=== PATIENT | male | born 1950 | race Asian ===

== ENCOUNTER 2023-10-14 19:27 | Inpatient (IN) | payer MEDICARE, OTHER ==
[~2023-10-14] VITALS: Ht 172.7 cm; Wt 72.6 kg
[2023-10-14] MEDS ORDERED: OLANZAPINE 10 MG VIAL IM ONE (20:11)
[2023-10-14] MEDS: OLANZAPINE 10 MG VIAL IM ONE (20:23)
[2023-10-14 20:32] LABS: BASOPHILS # (AUTO) 0.1 K/uL (0.0-0.2); BASOPHILS % (AUTO) 0.9 % (0.0-2.0); EOSINOPHILS # (AUTO) 0.2 K/uL (0.0-0.7); HEMATOCRIT 43 % (39-51); HEMOGLOBIN 14.4 g/dL (13.5-17.5); LYMPHOCYTES # (AUTO) 1.4 K/uL (0.8-4.8); LYMPHOCYTES % (AUTO) 12.1 % (20.0-44.0); MEAN CORPUSCULAR HEMOGLOBIN 29 PG (26.0-33.0); MEAN CORPUSCULAR HGB CONC 33 g/dl (31.0-36.0); MEAN CORPUSCULAR VOLUME 88 fL (80-96); MONOCYTES % (AUTO) 8.8 % (2.0-12.0); NEUTROPHILS # (AUTO) 8.9 K/uL (1.8-8.9); NEUTROPHILS % (AUTO) 76.2 % (43.0-81.0); PLATELET COUNT (AUTO) 427 K/uL (150-450); RED BLOOD CELL COUNT(AUTO) 4.89 MIL/uL (4.5-6.0); RED CELL DISTRIBUTION WIDTH 14.2 % (11.5-15.0); WHITE BLOOD COUNT (AUTO) 11.7 K/uL (4.3-11.0)
[2023-10-14 20:47] LABS: ALANINE AMINOTRANSFERASE 16 U/L (12-78); ALBUMIN 3.8 g/dL (3.4-5.0); ALKALINE PHOSPHATASE 80 U/L (46-116); ASPARTATE AMINOTRANSFERASE < 5 U/L (15-37); BILIRUBIN,DIRECT 0.1 mg/dL (0.0-0.2); BILIRUBIN,TOTAL 0.2 mg/dL (0.2-1.0); CHLORIDE 92 mmol/L (98-107); CREATININE 0.8 mg/dL (0.6-1.3); GLUCOSE 185 mg/dL (74-106); INR 0.97 (0.91-1.10); PARTIAL THROMBOPLASTIN TIME 30.5 SEC (24.3-34.3); POTASSIUM 4.4 mmol/L (3.5-5.1); PROTHROMBIN TIME 10.3 SECS (9.2-11.1); SODIUM SERUM 130 mmol/L (136-145); TOTAL PROTEIN, SERUM 8.7 g/dL (6.4-8.2); UREA NITROGEN, BLOOD 17 mg/dL (7-18)
[2023-10-14 20:59] LABS: NT-PRO BNP 89 pg/mL (0-125)
[2023-10-14 21:01] LABS: SALICYLATE 2.1 mg/dL (2.8-20.0)
[2023-10-14 21:03] LABS: ACETAMINOPHEN <10 ug/ml (10-30)
[2023-10-14 21:04] VITALS: O2SAT 97
[2023-10-14 21:09] LABS: CARBON DIOXIDE 24 mmol/L (21-32)
[2023-10-14 21:28] LABS: ALCOHOL, BLOOD < 3 mg/dL (0-10); CALCIUM, SERUM 10.2 mg/dL (8.5-10.1)
[2023-10-14] MEDS ORDERED: LORAZEPAM INJ 2 MG/ML VIAL ONE (21:28)
[2023-10-14] MEDS ORDERED: Calcium Gluconate 1GM/10ML 9.3 MEQ in IV NS 0.9% 100 ML IV ONE (21:30)
[2023-10-14] MEDS ORDERED: Calcium Gluconate 0.465 MEQ/ML VIAL IV ONE (21:31)
[2023-10-14] MEDS: LORAZEPAM INJ 2 MG/ML VIAL IV ONE (21:40)
[2023-10-14] MEDS: IV NS 0.9% 1,000 ML IV ONE (21:40)
[2023-10-14 22:11] LABS: APPEARANCE,URINE SLIGHTLY CLOUDY (CLEAR); BILIRUBIN,URINE NEGATIVE (NEGATIVE); BLOOD, URINE TRACE-INTA Ery/uL (NEGATIVE); COLOR,URINE YELLOW (YELLOW); KETONES,URINE NEGATIVE (NEGATIVE); LEUKOCYTE ESTERASE ,URINE 1+ (NEGATIVE); NITRITE, URINE NEGATIVE (NEGATIVE); PH,URINE 6.5 (5.0-8.0); PROTEIN,URINE TRACE mg/dl (NEGATIVE); UGLUCOSE 3+ mg/dL (NEGATIVE); UROBILINOGEN,URINE 0.2 EU/dL (0.2)
[2023-10-14 22:18] LABS: ADD URINE CULTURE YES; BACTERIA,URINE 1+ /HPF (None Seen); MUCUS,URINE Few /LPF (None Seen); SQUAMOUS EPITHELIAL CELL,UR 0-2 /HPF (None Seen)
[2023-10-14] MEDS ORDERED: ZOLPIDEM TARTRATE 5 MG TABLET PO PRN (22:30)
[2023-10-14] MEDS ORDERED: MAG HYDROX/AL HYDROX/SIMETH 30 ML UDC PO PRN (22:30)
[2023-10-14] MEDS ORDERED: MAGNESIUM HYDROXIDE 30 ML UDC PO PRN (22:30)
[2023-10-14] MEDS ORDERED: ONDANSETRON HCL/PF 4 MG/2 ML VIAL IVP PRN (22:30)
[2023-10-14 22:31] LABS: AMPHETAMINE, URINE NEGATIVE (NEGATIVE); BARBITURATE, URINE NEGATIVE (NEGATIVE); BENZODIAZEPINE, URINE NEGATIVE (NEGATIVE); CANNABINOID, URINE NEGATIVE (NEGATIVE); COCCAINE, URINE NEGATIVE (NEGATIVE); OPIATE, URINE NEGATIVE (NEGATIVE); PHENCYCLIDINE SCREEN,URINE NEGATIVE (NEGATIVE)
[2023-10-14 23:30] VITALS: BP 140/80; TEMP 97.5; O2SAT 97
[2023-10-15] MEDS: IV NS 0.9% 1,000 ML IV PRN (00:21)
[2023-10-15] MEDS: PANTOPRAZOLE 40 MG TABLET.DR PO SCH (07:58)
[2023-10-15 07:59] LABS: ALANINE AMINOTRANSFERASE 18 U/L (12-78); ALBUMIN 3.4 g/dL (3.4-5.0); ALKALINE PHOSPHATASE 75 U/L (46-116); ASPARTATE AMINOTRANSFERASE 10 U/L (15-37); BILIRUBIN,DIRECT 0.1 mg/dL (0.0-0.2); BILIRUBIN,TOTAL 0.2 mg/dL (0.2-1.0); CALCIUM, SERUM 9.6 mg/dL (8.5-10.1); CARBON DIOXIDE 25 mmol/L (21-32); CHLORIDE 95 mmol/L (98-107); CREATININE 0.7 mg/dL (0.6-1.3); GLUCOSE 110 mg/dL (74-106); MAGNESIUM 1.9 mg/dL (1.8-2.4); PHOSPHORUS 3.4 mg/dL (2.5-4.9); POTASSIUM 4.2 mmol/L (3.5-5.1); SODIUM SERUM 130 mmol/L (136-145); TOTAL PROTEIN, SERUM 7.9 g/dL (6.4-8.2); UREA NITROGEN, BLOOD 16 mg/dL (7-18)
[2023-10-15 08:00] VITALS: BP 201/81; TEMP 98.6; O2SAT 99
[2023-10-15 08:31] LABS: BASOPHILS # (AUTO) 0.1 K/uL (0.0-0.2); BASOPHILS % (AUTO) 0.9 % (0.0-2.0); EOSINOPHILS # (AUTO) 0.3 K/uL (0.0-0.7); EOSINOPHILS % (AUTO) 3.3 % (0.0-6.0); HEMATOCRIT 40 % (39-51); HEMOGLOBIN 13.2 g/dL (13.5-17.5); LYMPHOCYTES # (AUTO) 1.1 K/uL (0.8-4.8); LYMPHOCYTES % (AUTO) 12.9 % (20.0-44.0); MEAN CORPUSCULAR HEMOGLOBIN 29 PG (26.0-33.0); MEAN CORPUSCULAR HGB CONC 33 g/dl (31.0-36.0); MEAN CORPUSCULAR VOLUME 89 fL (80-96); MONOCYTES # (AUTO) 0.9 K/uL (0.1-1.30); MONOCYTES % (AUTO) 10.4 % (2.0-12.0); NEUTROPHILS % (AUTO) 72.5 % (43.0-81.0); PLATELET COUNT (AUTO) 413 K/uL (150-450); RED BLOOD CELL COUNT(AUTO) 4.51 MIL/uL (4.5-6.0); RED CELL DISTRIBUTION WIDTH 14.3 % (11.5-15.0); WHITE BLOOD COUNT (AUTO) 8.2 K/uL (4.3-11.0)
[2023-10-15] MEDS ORDERED: OLAN5TAB3 PO (09:36)
[2023-10-15] MEDS ORDERED: CYAN-51 PO (09:36)
[2023-10-15] MEDS ORDERED: BISA10SU11 RC (09:36)
[2023-10-15] MEDS ORDERED: ASCO500T10 PO (09:36)
[2023-10-15] MEDS ORDERED: LOSA100T31 PO (09:36)
[2023-10-15] MEDS ORDERED: FERR325T24 PO (09:36)
[2023-10-15] MEDS ORDERED: EMPA10TA PO (09:36)
[2023-10-15] MEDS ORDERED: CARB-231 EACHEYE (09:36)
[2023-10-15] MEDS ORDERED: DOCU100C36 PO (09:36)
[2023-10-15] MEDS ORDERED: GUSE100A SQ (09:36)
[2023-10-15] MEDS ORDERED: AMLO-212 PO (09:36)
[2023-10-15] MEDS ORDERED: CHOL100043 PO (09:36)
[2023-10-15] MEDS ORDERED: ACET325T53 PO (09:36)
[2023-10-15] MEDS ORDERED: GLIP5TAB13 PO (09:36)
[2023-10-15] MEDS ORDERED: METF-442 PO (09:36)
[2023-10-15] MEDS ORDERED: ESCI5TAB PO (09:36)
[2023-10-15] MEDS ORDERED: MELA5TAB PO (09:36)
[2023-10-15] MEDS ORDERED: FOLI0.4T6 PO (09:36)
[2023-10-15] MEDS ORDERED: ATOR10TA PO (09:36)
[2023-10-15] MEDS ORDERED: OXCA300T15 PO (09:36)
[2023-10-15] MEDS ORDERED: EZET10TA16 PO (09:36)
[2023-10-15] MEDS ORDERED: OMEG-88 PO (09:36)
[2023-10-15] MEDS: AMLODIPINE BESYLATE 5 MG TABLET PO SCH (14:39)
[2023-10-15] MEDS: CHOLECALCIFEROL 1,000 UNIT TABLET (VIT D3) PO SCH (14:39)
[2023-10-15] MEDS: LOSARTAN POTASSIUM 50 MG TABLET PO SCH (14:39)
[2023-10-15] MEDS: CYANOCOBALAMIN 500 MCG TABLET PO SCH (14:40)
[2023-10-15] MEDS: OLANZAPINE 5 MG TABLET PO SCH (14:40)
[2023-10-15] MEDS: FERROUS SULFATE (325 MG) 325 MG/TAB TABLET PO SCH (14:40)
[2023-10-15] MEDS: ESCITALOPRAM OXALATE (10 MG) 10 MG TABLET PO SCH (14:41)
[2023-10-15] MEDS: FOLIC ACID 1 MG TABLET PO SCH (14:41)
[2023-10-15] MEDS: ASCORBIC ACID 500 MG TABLET PO SCH (14:42)
[2023-10-15] MEDS: DOCUSATE SODIUM 100 MG CAPSULE PO SCH (14:42)
[2023-10-15] MEDS: OXCARBAZEPINE 150 MG TABLET PO SCH (14:42)
[2023-10-15] MEDS: EMPAGLIFLOZIN 10 MG TABLET PO SCH (15:22)
[2023-10-15] MEDS: CEFTRIAXONE 1 G in IV D5W 50 ML IV SCH (15:22)
[2023-10-15 16:00] VITALS: BP 171/67; TEMP 98.6; O2SAT 97
[2023-10-15] MEDS: METFORMIN 500 MG TABLET PO SCH (17:58)
[2023-10-15 20:00] VITALS: BP 158/64; TEMP 98.1; O2SAT 97
[2023-10-15] MEDS: ATORVASTATIN 10 MG TABLET PO SCH (21:40)
[2023-10-15] MEDS: EZETIMIBE 10 MG TABLET PO SCH (21:40)
[2023-10-16] VITALS: BP 190/80; TEMP 97.3; O2SAT 100
[2023-10-16 00:18] VITALS: BP 190/80
[2023-10-16 04:00] VITALS: BP 169/74; TEMP 97.8; O2SAT 100
[2023-10-16 07:42] LABS: CALCIUM, SERUM 9.2 mg/dL (8.5-10.1); CARBON DIOXIDE 28 mmol/L (21-32); CHLORIDE 94 mmol/L (98-107); CREATININE 0.7 mg/dL (0.6-1.3); GLUCOSE 94 mg/dL (74-106); MAGNESIUM 1.6 mg/dL (1.8-2.4); PHOSPHORUS 3.7 mg/dL (2.5-4.9); SODIUM SERUM 131 mmol/L (136-145); UREA NITROGEN, BLOOD 16 mg/dL (7-18)
[2023-10-16] MEDS: glipiZIDE 5 MG TABLET PO SCH (07:45)
[2023-10-16 08:00] VITALS: BP 185/77; TEMP 98.6; O2SAT 97
[2023-10-16 08:16] LABS: URIC ACID 2.9 mg/dL (2.6-7.2)
[2023-10-16] MEDS: hydrALAZINE HCL 25 MG TABLET PO SCH (09:10)
[2023-10-16] MEDS: AMLODIPINE BESYLATE 10 MG TABLET PO SCH (09:13)
[2023-10-16] MEDS: POLYVINYL ALCOHOL 15 ML BOTTLE EACHEYE PRN (09:14)
[2023-10-16] MEDS: Z GUARD REMEDY 4 OZ OINT TP PRN (09:15)
[2023-10-16] MEDS: MAGNESIUM OXIDE 400 MG TABLET PO ONE (09:18)
[2023-10-16] MEDS: CEPHALEXIN MONOHYDRATE 500 MG CAPSULE PO SCH (09:59)
[2023-10-16] MEDS ORDERED: CEPHALEXIN MONOHYDRATE 250 MG/5 ML BOTTLE PO SCH (10:00)
[2023-10-16 16:00] VITALS: BP 131/61; TEMP 97.9; O2SAT 98
[2023-10-16 20:18] VITALS: BP 142/76; TEMP 97.5; O2SAT 99
[2023-10-17 07:26] LABS: BASOPHILS # (AUTO) 0.1 K/uL (0.0-0.2); EOSINOPHILS # (AUTO) 0.3 K/uL (0.0-0.7); EOSINOPHILS % (AUTO) 3.7 % (0.0-6.0); HEMATOCRIT 39 % (39-51); HEMOGLOBIN 13.2 g/dL (13.5-17.5); LYMPHOCYTES # (AUTO) 1.3 K/uL (0.8-4.8); LYMPHOCYTES % (AUTO) 16.2 % (20.0-44.0); MEAN CORPUSCULAR HEMOGLOBIN 30 PG (26.0-33.0); MEAN CORPUSCULAR HGB CONC 34 g/dl (31.0-36.0); MEAN CORPUSCULAR VOLUME 88 fL (80-96); MONOCYTES # (AUTO) 0.7 K/uL (0.1-1.30); MONOCYTES % (AUTO) 9.6 % (2.0-12.0); NEUTROPHILS # (AUTO) 5.4 K/uL (1.8-8.9); NEUTROPHILS % (AUTO) 69.5 % (43.0-81.0); PLATELET COUNT (AUTO) 403 K/uL (150-450); RED BLOOD CELL COUNT(AUTO) 4.41 MIL/uL (4.5-6.0); RED CELL DISTRIBUTION WIDTH 13.6 % (11.5-15.0); WHITE BLOOD COUNT (AUTO) 7.8 K/uL (4.3-11.0)
[2023-10-17 07:36] LABS: CALCIUM, SERUM 8.8 mg/dL (8.5-10.1); CARBON DIOXIDE 22 mmol/L (21-32); CHLORIDE 90 mmol/L (98-107); CREATININE 0.7 mg/dL (0.6-1.3); GLUCOSE 118 mg/dL (74-106); MAGNESIUM 1.6 mg/dL (1.8-2.4); PHOSPHORUS 3.4 mg/dL (2.5-4.9); POTASSIUM 4.2 mmol/L (3.5-5.1); SODIUM SERUM 125 mmol/L (136-145); UREA NITROGEN, BLOOD 16 mg/dL (7-18)
[2023-10-17 08:00] VITALS: BP 155/71; TEMP 97.7; O2SAT 97
[2023-10-17] MEDS ORDERED: AMLO-213 PO (09:36)
[2023-10-17] MEDS ORDERED: HYDR-4076 PO (09:36)
[2023-10-17] MEDS ORDERED: CEPH-570 PO (09:36)
[2023-10-17] MEDS: IV NS 0.9% 500 ML IV ONE (10:00)
[2023-10-17] MEDS: MAGNESIUM OXIDE 400 MG TABLET PO ONE (12:02)
[2023-10-17 16:00] VITALS: BP 135/66; TEMP 98.6; O2SAT 98
[2023-10-17 16:19] LABS: CALCIUM, SERUM 8.6 mg/dL (8.5-10.1); CARBON DIOXIDE 22 mmol/L (21-32); CHLORIDE 94 mmol/L (98-107); CREATININE 0.8 mg/dL (0.6-1.3); GLUCOSE 63 mg/dL (74-106); POTASSIUM 4.2 mmol/L (3.5-5.1); SODIUM SERUM 128 mmol/L (136-145); UREA NITROGEN, BLOOD 18 mg/dL (7-18)
[2023-10-17 20:40] VITALS: BP 157/70; TEMP 98.6; O2SAT 97
[2023-10-18] MEDS: ACETAMINOPHEN 325 MG TABLET PO PRN (00:19)
[2023-10-18 07:30] VITALS: BP 164/65; TEMP 97.7; O2SAT 96
[2023-10-18 10:25] LABS: BASOPHILS # (AUTO) 0.1 K/uL (0.0-0.2); EOSINOPHILS # (AUTO) 0.3 K/uL (0.0-0.7); EOSINOPHILS % (AUTO) 4.8 % (0.0-6.0); HEMATOCRIT 39 % (39-51); HEMOGLOBIN 12.9 g/dL (13.5-17.5); LYMPHOCYTES % (AUTO) 15.5 % (20.0-44.0); MEAN CORPUSCULAR HEMOGLOBIN 30 PG (26.0-33.0); MEAN CORPUSCULAR HGB CONC 34 g/dl (31.0-36.0); MEAN CORPUSCULAR VOLUME 89 fL (80-96); MONOCYTES # (AUTO) 0.6 K/uL (0.1-1.30); MONOCYTES % (AUTO) 8.6 % (2.0-12.0); NEUTROPHILS # (AUTO) 4.7 K/uL (1.8-8.9); NEUTROPHILS % (AUTO) 70.1 % (43.0-81.0); PLATELET COUNT (AUTO) 408 K/uL (150-450); RED BLOOD CELL COUNT(AUTO) 4.37 MIL/uL (4.5-6.0); WHITE BLOOD COUNT (AUTO) 6.7 K/uL (4.3-11.0)
[2023-10-18 10:40] LABS: CALCIUM, SERUM 9.2 mg/dL (8.5-10.1); CARBON DIOXIDE 28 mmol/L (21-32); CHLORIDE 89 mmol/L (98-107); CREATININE 0.8 mg/dL (0.6-1.3); GLUCOSE 133 mg/dL (74-106); MAGNESIUM 1.6 mg/dL (1.8-2.4); PHOSPHORUS 3.4 mg/dL (2.5-4.9); POTASSIUM 3.8 mmol/L (3.5-5.1); SODIUM SERUM 125 mmol/L (136-145); UREA NITROGEN, BLOOD 19 mg/dL (7-18)
[2023-10-18] MEDS ORDERED: SODI100037 PO (13:33)
[2023-10-18] MEDS ORDERED: CIPR500S2 PO (13:33)
[2023-10-18 16:01] VITALS: BP 152/65; TEMP 97.9; O2SAT 96
== END 2023-10-18 18:30 | DRG 643 ==
LOC: ER 19:38 → MED 22:47 → TELE 10-15 21:51 → MED 10-16 17:24
PROVIDERS: ADMIT Nurse Practitioner Family; ATTEND Student in an Organized Health Care Education/Training Program
DX: E22.2 Syndrome of inappropriate secretion of antidiuretic hormone (principal); G93.41 Metabolic encephalopathy; N39.0 Urinary tract infection, site not specified; F03.93 Unspecified dementia, unspecified severity, with mood disturbance; F03.918 Unspecified dementia, unspecified severity, with other behavioral disturbance; R62.7 Adult failure to thrive; N18.9 Chronic kidney disease, unspecified; F25.9 Schizoaffective disorder, unspecified; E86.0 Dehydration; E83.52 Hypercalcemia; E11.22 Type 2 diabetes mellitus with diabetic chronic kidney disease; Z20.822 Contact with and (suspected) exposure to COVID-19; I12.9 Hypertensive chronic kidney disease with stage 1 through stage 4 chronic kidney disease, or unspecified chronic kidney disease; E78.5 Hyperlipidemia, unspecified; M89.8X9 Other specified disorders of bone, unspecified site; M62.50 Muscle wasting and atrophy, not elsewhere classified, unspecified site; Z53.20 Procedure and treatment not carried out because of patient's decision for unspecified reasons; E86.1 Hypovolemia; D64.9 Anemia, unspecified; B96.89 Other specified bacterial agents as the cause of diseases classified elsewhere; F29 Unspecified psychosis not due to a substance or known physiological condition; Z74.09 Other reduced mobility; Z79.84 Long term (current) use of oral hypoglycemic drugs; Z79.899 Other long term (current) drug therapy
CPT/HCPCS: 36415; 71045-TC; 76770-TC; 80048-TC; 80076-TC; 81001; 82962-TC; 83735-TC; 83880; 84100-TC; 84443-TC; 84484-TC; 84550-TC; 85025-TC; 85730-TC; 87081-TC; 87086-TC; A4223; G0378; G0480; J0610; J0696; J2060; J3490; J7030; J7060

== ENCOUNTER 2024-08-21 17:42 | Inpatient (IN) | payer MEDICARE, MEDICAID ==
[~2024-08-21] VITALS: Ht 165.1 cm; Wt 66.8 kg
[~2024-08-21 17:42] MED LIST: ACET325T53 PO; AMLO-213 PO; ASCO500T10 PO; ATOR10TA PO; BISA10SU11 RC; CARB-231 EACHEYE; CHOL100043 PO; CIPR500S2 PO; CYAN-51 PO; DOCU100C36 PO; EMPA10TA PO; ESCI5TAB PO; EZET10TA16 PO; FERR325T24 PO; FOLI0.4T6 PO; GLIP5TAB13 PO; GUSE100A SQ; HYDR-4076 PO; LOSA100T31 PO; MELA5TAB PO; METF-442 PO; OLAN5TAB3 PO; OMEG-88 PO; OXCA300T15 PO; SODI100037 PO
[2024-08-21] MEDS ORDERED: OLANZAPINE 10 MG VIAL IM ONE (18:22)
[2024-08-21] MEDS: OLANZAPINE 10 MG VIAL IM ONE (18:30)
[2024-08-21 20:00] LABS: APPEARANCE,URINE CLEAR (CLEAR); BLOOD, URINE 3+ Ery/uL (NEGATIVE); LEUKOCYTE ESTERASE ,URINE 2+ (NEGATIVE); NITRITE, URINE NEGATIVE (NEGATIVE); UGLUCOSE 3+ mg/dL (NEGATIVE)
[2024-08-21 20:02] LABS: ADD URINE CULTURE YES; SQUAMOUS EPITHELIAL CELL,UR Rare /HPF (None Seen)
[2024-08-21 20:03] LABS: URINE AMORPHOUS PHOSPHATES Few /HPF (None Seen)
[2024-08-21 20:03] LABS: PLATELET COUNT (AUTO) 554 K/uL (150-450); RED BLOOD CELL COUNT(AUTO) 4.39 MIL/uL (4.5-6.0); RED CELL DISTRIBUTION WIDTH 13.6 % (11.5-15.0); WHITE BLOOD COUNT (AUTO) 11.7 K/uL (4.3-11.0)
[2024-08-21 20:09] LABS: AMPHETAMINE, URINE NEGATIVE (NEGATIVE); ASPARTATE AMINOTRANSFERASE 12 U/L (15-37); BARBITURATE, URINE NEGATIVE (NEGATIVE); BENZODIAZEPINE, URINE NEGATIVE (NEGATIVE); CALCIUM, SERUM 9.3 mg/dL (8.5-10.1); CANNABINOID, URINE NEGATIVE (NEGATIVE); COCCAINE, URINE NEGATIVE (NEGATIVE); CREATININE 1.2 mg/dL (0.6-1.3); OPIATE, URINE NEGATIVE (NEGATIVE); SODIUM SERUM 128 mmol/L (136-145); TOTAL PROTEIN, SERUM 8.4 g/dL (6.4-8.2); UREA NITROGEN, BLOOD 26 mg/dL (7-18)
[2024-08-21 20:10] LABS: ALCOHOL, BLOOD < 3 mg/dL (0-10)
[2024-08-21] MEDS ORDERED: CEFTRIAXONE 1GM BAG (ER ONLY) 50 ML IV ONE (20:53)
[2024-08-21] MEDS: CEFTRIAXONE 1 G in IV D5W 50 ML IV ONE (20:57)
[2024-08-21] MEDS: IV NS 0.9% 1,000 ML BAG IV ONE (20:57)
[2024-08-21] MEDS ORDERED: ACETAMINOPHEN 325 MG TABLET PO PRN (23:00)
[2024-08-21] MEDS ORDERED: ZOLPIDEM TARTRATE 5 MG TABLET PO PRN ×2 (23:00)
[2024-08-21] MEDS ORDERED: MAGNESIUM HYDROXIDE 30 ML UDC PO PRN (23:00)
[2024-08-21] MEDS ORDERED: QUETIAPINE FUMARATE 25 MG TABLET PO PRN ×2 (23:00)
[2024-08-21] MEDS ORDERED: MAG HYDROX/AL HYDROX/SIMETH 30 ML UDC PO PRN (23:00)
[2024-08-21] MEDS: BLOOD SUGAR DIAGNOSTIC 1 EACH STRIP IN ONE (23:01)
[2024-08-22 00:39] VITALS: BP 155/75; TEMP 97.5; O2SAT 97
[2024-08-22] MEDS ORDERED: DEXTROSE 50%-WATER 50 ML DISP.SYRIN IV PRN (01:30)
[2024-08-22] MEDS ORDERED: *INSULIN REGULAR(HUMULIN R)HUM 100 UNIT/ML VIAL SQ PRN (01:30)
[2024-08-22] MEDS ORDERED: BISACODYL SUPP (10 MG) 10 MG/SUPP.RECT SUPP.RECT RC PRN (01:30)
[2024-08-22] MEDS: BLOOD SUGAR DIAGNOSTIC 1 EACH STRIP VI SCH (06:36)
[2024-08-22] MEDS: INSULIN REGULAR, HUMAN 100 UNIT/ML 3 ML VIAL SQ PRN (06:36)
[2024-08-22 07:54] LABS: ASPARTATE AMINOTRANSFERASE 18.0 U/L (15-37); CALCIUM, SERUM 9.1 mg/dL (8.5-10.1); CREATININE 0.9 mg/dL (0.6-1.3); SODIUM SERUM 134.0 mmol/L (136-145); TOTAL PROTEIN, SERUM 7.9 g/dL (6.4-8.2); UREA NITROGEN, BLOOD 22.0 mg/dL (7-18)
[2024-08-22 08:00] VITALS: BP 155/67; TEMP 98.2; O2SAT 96
[2024-08-22 08:04] LABS: LDL 44 mg/dL (0-99)
[2024-08-22] MEDS: CIPROFLOXACIN HCL 500 MG TABLET PO SCH (08:45)
[2024-08-22] MEDS: LOSARTAN POTASSIUM 50 MG TABLET PO SCH (08:45)
[2024-08-22] MEDS: ASCORBIC ACID 500 MG TABLET PO SCH (08:45)
[2024-08-22] MEDS: DOCUSATE SODIUM 100 MG CAPSULE PO SCH (08:45)
[2024-08-22] MEDS: CHOLECALCIFEROL 1,000 UNIT TABLET (VIT D3) PO SCH (08:45)
[2024-08-22] MEDS: FOLIC ACID 1 MG TABLET PO SCH (08:45)
[2024-08-22] MEDS: AMLODIPINE BESYLATE 10 MG TABLET PO SCH (08:46)
[2024-08-22] MEDS: FERROUS SULFATE (325 MG) 325 MG/TAB TABLET PO SCH (08:46)
[2024-08-22] MEDS: SODIUM CHLORIDE 1000 MG TABLET PO SCH (08:46)
[2024-08-22] MEDS: METFORMIN 500 MG TABLET PO SCH (08:47)
[2024-08-22] MEDS: CYANOCOBALAMIN 500 MCG TABLET PO SCH (08:47)
[2024-08-22] MEDS ORDERED: DHA PO SCH (09:00)
[2024-08-22] MEDS ORDERED: FISH OIL PO SCH (09:00)
[2024-08-22] MEDS ORDERED: EPA PO SCH (09:00)
[2024-08-22] MEDS: CARBOXYMETHYLCELLULOSE SODIUM 0.4 ML DROPERETTE EACHEYE SCH (09:00)
[2024-08-22] MEDS ORDERED: OXCARBAZEPINE 150 MG TABLET PO SCH (09:00)
[2024-08-22] MEDS: EMPAGLIFLOZIN 10 MG TABLET PO SCH (09:00)
[2024-08-22] MEDS ORDERED: OMEGA PO SCH (09:00)
[2024-08-22] MEDS ORDERED: [UNRECOGNIZED DRUG - OTHER] PO SCH (09:00)
[2024-08-22] MEDS: CLONIDINE HCL 0.1 MG TABLET PO PRN (12:33)
[2024-08-22 16:00] VITALS: BP 134/62; TEMP 98.1; O2SAT 97
[2024-08-22 20:17] VITALS: BP 184/72; TEMP 97.9; O2SAT 97
[2024-08-22] MEDS: OLANZAPINE 2.5 MG TABLET PO SCH (21:52)
[2024-08-22 21:56] VITALS: BP 129/68; TEMP 98; O2SAT 98
[2024-08-22] MEDS: ATORVASTATIN 10 MG TABLET PO SCH (22:12)
[2024-08-22] MEDS: EZETIMIBE 10 MG TABLET PO SCH (22:12)
[2024-08-23 08:00] VITALS: BP 119/63; TEMP 97.8; O2SAT 99
[2024-08-23] MEDS: ACETAMINOPHEN 325 MG TABLET PO PRN (15:31)
[2024-08-23 16:00] VITALS: BP 159/79; TEMP 98; O2SAT 97
[2024-08-23 20:08] VITALS: BP 127/77; TEMP 98; O2SAT 99
[2024-08-24 08:00] VITALS: BP 181/65; TEMP 97.7; O2SAT 100
[2024-08-24 10:09] VITALS: BP 146/70
[2024-08-24 16:03] VITALS: BP 142/66; TEMP 97.9; O2SAT 98
[2024-08-24 16:27] LABS: CALCIUM, SERUM 10.0 mg/dL (8.5-10.1); CREATININE 0.9 mg/dL (0.6-1.3); SODIUM SERUM 137.0 mmol/L (136-145); UREA NITROGEN, BLOOD 23.0 mg/dL (7-18)
[2024-08-24] MEDS: SODIUM POLYSTYRENE SULFONATE 15 G/60 ML BOTTLE PO ONE (18:15)
[2024-08-24 21:00] VITALS: BP 130/70; TEMP 98; O2SAT 98
[2024-08-24] MEDS: DIVALPROEX SODIUM 125 MG TABLET.DR PO SCH (21:12)
[2024-08-25 07:46] LABS: PLATELET COUNT (AUTO) 605 K/uL (150-450); RED BLOOD CELL COUNT(AUTO) 4.20 MIL/uL (4.5-6.0); RED CELL DISTRIBUTION WIDTH 13.6 % (11.5-15.0); WHITE BLOOD COUNT (AUTO) 7.4 K/uL (4.3-11.0)
[2024-08-25 08:00] VITALS: BP 174/71; TEMP 98.6; O2SAT 98
[2024-08-25] MEDS: LORAZEPAM 1 MG TABLET PO STA (08:07)
[2024-08-25 08:16] LABS: CALCIUM, SERUM 9.5 mg/dL (8.5-10.1); CREATININE 0.9 mg/dL (0.6-1.3); SODIUM SERUM 132.0 mmol/L (136-145); UREA NITROGEN, BLOOD 23.0 mg/dL (7-18)
[2024-08-25] MEDS: LORAZEPAM 1 MG TABLET PO PRN (15:45)
[2024-08-25 15:57] LABS: PHOSPHORUS 3.7 mg/dL (2.5-4.9)
[2024-08-25 16:00] VITALS: BP 138/64; TEMP 97.9; O2SAT 100
[2024-08-25] MEDS: CARBOXYMETHYLCELLULOSE SODIUM 1 EA TUBE EACHEYE SCH (16:14)
[2024-08-25 20:58] VITALS: BP 133/70; TEMP 98; O2SAT 100
[2024-08-25] MEDS: OLANZAPINE 2.5 MG TABLET PO SCH (21:12)
[2024-08-26 08:07] VITALS: BP 156/71; TEMP 98; O2SAT 99
[2024-08-26 16:00] VITALS: BP 148/61; TEMP 98.2; O2SAT 97
[2024-08-26 20:28] VITALS: BP 160/62; TEMP 98; O2SAT 97
[2024-08-27 02:10] VITALS: BP 150/65; TEMP 98; O2SAT 98
[2024-08-27 08:00] VITALS: BP 179/70; TEMP 98.7; O2SAT 97
[2024-08-27 16:00] VITALS: BP 143/58; TEMP 98.1; O2SAT 98
[2024-08-27 20:04] VITALS: BP 164/68; TEMP 97.8; O2SAT 99
[2024-08-27 21:20] VITALS: BP 142/66; TEMP 98; O2SAT 98
[2024-08-28 07:49] LABS: CALCIUM, SERUM 9.2 mg/dL (8.5-10.1); CREATININE 0.7 mg/dL (0.6-1.3); SODIUM SERUM 133.0 mmol/L (136-145); UREA NITROGEN, BLOOD 23.0 mg/dL (7-18)
[2024-08-28 08:00] VITALS: BP 144/66; TEMP 97.8; O2SAT 100
[2024-08-28 16:00] VITALS: BP 173/63; TEMP 97.9; O2SAT 100
[2024-08-28 19:54] VITALS: BP 162/63; TEMP 97.9; O2SAT 100
[2024-08-28 21:51] VITALS: BP 152/62; TEMP 98.4; O2SAT 99
[2024-08-29 00:55] VITALS: BP 168/68; TEMP 98; O2SAT 98
[2024-08-29 08:00] VITALS: BP 190/75; TEMP 98.7; O2SAT 99
[2024-08-29 16:00] VITALS: BP 146/66; TEMP 97.9; O2SAT 100
[2024-08-29 20:38] VITALS: BP 149/62; TEMP 97.8; O2SAT 100
[2024-08-29] MEDS: OLANZAPINE 2.5 MG TABLET PO SCH (21:38)
[2024-08-30 00:18] LABS: APPEARANCE,URINE CLEAR (CLEAR); BLOOD, URINE NEGATIVE Ery/uL (NEGATIVE); LEUKOCYTE ESTERASE ,URINE NEGATIVE (NEGATIVE); NITRITE, URINE POSITIVE (NEGATIVE); UGLUCOSE 3+ mg/dL (NEGATIVE)
[2024-08-30 00:26] LABS: ADD URINE CULTURE YES; SQUAMOUS EPITHELIAL CELL,UR Rare /HPF (None Seen); YEAST,URINE Many /HPF (None Seen)
[2024-08-30 08:00] VITALS: BP 147/58; TEMP 97.8; O2SAT 100
[2024-08-30] MEDS: FLUCONAZOLE (100 MG) 100 MG TABLET PO SCH (09:13)
[2024-08-30 16:00] VITALS: BP 167/64; TEMP 98; O2SAT 100
[2024-08-30 20:17] VITALS: BP 171/71; TEMP 97.6; O2SAT 100
[2024-08-31 08:00] VITALS: BP 143/60; TEMP 98.7; O2SAT 98
[2024-08-31 08:09] VITALS: BP 143/60
== END 2024-08-31 13:41 | DRG 885 ==
LOC: ER 17:49 → GPS 21:29
PROVIDERS: ADMIT Psychiatry & Neurology Psychiatry
DX: F39 Unspecified mood [affective] disorder (principal); N18.9 Chronic kidney disease, unspecified; E87.1 Hypo-osmolality and hyponatremia; N39.0 Urinary tract infection, site not specified; F03.92 Unspecified dementia, unspecified severity, with psychotic disturbance; F03.93 Unspecified dementia, unspecified severity, with mood disturbance; F03.911 Unspecified dementia, unspecified severity, with agitation; G93.49 Other encephalopathy; F29 Unspecified psychosis not due to a substance or known physiological condition; E86.0 Dehydration; I12.9 Hypertensive chronic kidney disease with stage 1 through stage 4 chronic kidney disease, or unspecified chronic kidney disease; F20.9 Schizophrenia, unspecified; Z91.199 Patient's noncompliance with other medical treatment and regimen due to unspecified reason; E78.5 Hyperlipidemia, unspecified; D64.9 Anemia, unspecified; E11.22 Type 2 diabetes mellitus with diabetic chronic kidney disease; Z79.84 Long term (current) use of oral hypoglycemic drugs; M62.50 Muscle wasting and atrophy, not elsewhere classified, unspecified site; Z79.899 Other long term (current) drug therapy; Z73.6 Limitation of activities due to disability; B96.89 Other specified bacterial agents as the cause of diseases classified elsewhere; R79.89 Other specified abnormal findings of blood chemistry
CPT/HCPCS: 36415; 71045-TC; 80048-TC; 80053-TC; 80061-TC; 80076-TC; 81001; 82962-TC; 83735-TC; 84100-TC; 84443-TC; 84484-TC; 85025-TC; 87086-TC; G0480; J0696; J1200; J1815; J3490; J7060